=== PATIENT | male | born 1960 | race African-American/Black ===

== ENCOUNTER 2023-11-01 14:12 | Inpatient (IN) | payer OTHER ==
[2023-11-01 14:44] VITALS: BMI 20.3
[2023-11-01] MEDS ORDERED: BENZOCAINE/MENTHOL (CHLORASEPTIC ) LOZENGE MM PRN (16:10)
[2023-11-01] MEDS ORDERED: MAGNESIUM HYDROX 2400MG/30ML ORAL SUSPENSION 30 ML CUP PO PRN (16:10)
[2023-11-01] MEDS ORDERED: hydrOXYzine PAMOATE 25 MG CAPSULE (FP) PO PRN (16:10)
[2023-11-01] MEDS ORDERED: ACETAMINOPHEN 325 MG TABLET (FP) PO PRN (16:10)
[2023-11-01] MEDS ORDERED: DICYCLOMINE HCL 10 MG CAPSULE PO PRN (16:10)
[2023-11-01] MEDS ORDERED: POLYETHYLENE GLYCOL (HEALTHYLAX) 3350 17 GM PACKET PO PRN (16:10)
[2023-11-01] MEDS ORDERED: NALOXONE HCL (KLOXXADO) 8 MG SPRAY NS PRN (16:10)
[2023-11-01] MEDS ORDERED: LORazepam 1 MG TABLET PO PRN (16:10)
[2023-11-01] MEDS ORDERED: BISMUTH SUBSALICYLATE 524 MG/30 ML PO PRN (16:10)
[2023-11-01] MEDS ORDERED: IBUPROFEN 600 MG TABLET (FP) PO PRN (16:10)
[2023-11-01] MEDS ORDERED: BENZONATATE 200 MG CAPSULE PO PRN (16:10)
[2023-11-01] MEDS ORDERED: MAG HYDROX/AL HYDROX/SIMETH 30 ML UNIT-DOSE CUP PO PRN (16:10)
[2023-11-01] MEDS ORDERED: IBUPROFEN 400 MG TABLET (FP) PO PRN (16:10)
[2023-11-01] MEDS ORDERED: NALOXONE HCL 0.4 MG/ML VIAL IM PRN (16:10)
[2023-11-01] MEDS ORDERED: guaiFENesin 600 MG TABLET.ER (FP) PO PRN (16:10)
[2023-11-01] MEDS ORDERED: ONDANSETRON *ODT* 4 MG TABLET SL PRN (16:10)
[2023-11-01] MEDS ORDERED: TIMOLOL 0.5% OPHTHALMIC SOL 5 ML BOTTLE OD SCH (16:15)
[2023-11-01] MEDS: LORazepam 2 MG TABLET PO SCH ×2 (17:21→23:07)
[2023-11-01] MEDS: PRENATAL VITAMINS W/ FOLIC ACID TABLET (FP) PO SCH (18:14)
[2023-11-01] MEDS: NICOTINE 21 MG/24 HOURS TOPICAL PATCH TD SCH (18:14)
[2023-11-01] MEDS: LOPERAMIDE HCL 2 MG CAPSULE PO PRN (19:00)
[2023-11-01] MEDS: TIMOLOL 0.5% OPHTHALMIC SOL 5 ML BOTTLE OU SCH (23:06)
[2023-11-01] MEDS: LATANOPROST 0.005% OPHTH SOLN 2.5ML BOTTLE OU SCH (23:07)
[2023-11-01] MEDS: MELATONIN 5 MG TABLETS PO SCH (23:08)
[2023-11-01] MEDS: THIAMINE HCL 100 MG TABLET (FP) PO SCH (23:08)
[2023-11-02] MEDS: LORazepam 2 MG TABLET PO SCH ×4 (05:54→22:45)
[2023-11-02 08:29] LABS: POTASSIUM 3.5 mmol/L (3.5-5.1)
[2023-11-02 08:34] LABS: CALCIUM 9.3 mg/dL (8.5-10.1)
[2023-11-02 08:35] LABS: ALBUMIN 2.4 g/dl (3.4-5.0); BLOOD UREA NITROGEN 19.8 mg/dL (7-18)
[2023-11-02 08:38] LABS: CREATININE 1.3 mg/dL (0.55-1.3)
[2023-11-02 08:39] LABS: TOT PROT 6.4 g/dl (6.4-8.2)
[2023-11-02 08:40] LABS: BILIRUBIN,TOTAL 2.9 mg/dL (0.2-1)
[2023-11-02 08:42] LABS: HEMATOCRIT 24.2 % (35.4-49); HEMOGLOBIN 8.1 GM/dL (11.7-16.9); MCH 30.5 pg (25.7-33.7); MCHC 33.5 g/dl (32.0-35.9); MEAN PLT VOLUME 8.8 fl (7.5-11.1); PLATELET COUNT 101 10^3/uL (134-434); RBC 2.65 M/mm3 (4.00-5.60); RDW 15.2 % (11.9-15.9); WHITE BLOOD COUNT 3.8 K/mm3 (4.0-10.0)
[2023-11-02] MEDS ORDERED: ASPIRIN 81 MG CHEWABLE TABLETS PO SCH (10:00)
[2023-11-02] MEDS: PRENATAL VITAMINS W/ FOLIC ACID TABLET (FP) PO SCH (10:59)
[2023-11-02] MEDS: TIMOLOL 0.5% OPHTHALMIC SOL 5 ML BOTTLE OU SCH ×2 (10:59→22:46)
[2023-11-02] MEDS: METHOCARBAMOL 500 MG TABLET PO PRN (10:59)
[2023-11-02] MEDS: amLODIPine BESYLATE 10 MG TABLET (FP) PO SCH (10:59)
[2023-11-02] MEDS: NICOTINE 21 MG/24 HOURS TOPICAL PATCH TD SCH (11:00)
[2023-11-02] MEDS: MELATONIN 5 MG TABLETS PO SCH (22:45)
[2023-11-02] MEDS: THIAMINE HCL 100 MG TABLET (FP) PO SCH (22:45)
[2023-11-02] MEDS: LATANOPROST 0.005% OPHTH SOLN 2.5ML BOTTLE OU SCH (22:46)
[2023-11-02] MEDS: LOPERAMIDE HCL 2 MG CAPSULE PO PRN (22:49)
[2023-11-03] MEDS: LORazepam 1 MG TABLET PO SCH ×4 (05:46→22:39)
[2023-11-03] MEDS: NICOTINE 21 MG/24 HOURS TOPICAL PATCH TD SCH (10:14)
[2023-11-03] MEDS: TIMOLOL 0.5% OPHTHALMIC SOL 5 ML BOTTLE OU SCH ×2 (10:14→22:39)
[2023-11-03] MEDS: PRENATAL VITAMINS W/ FOLIC ACID TABLET (FP) PO SCH (10:14)
[2023-11-03] MEDS: amLODIPine BESYLATE 10 MG TABLET (FP) PO SCH (10:15)
[2023-11-03 12:12] LABS: CHLORIDE 109 mmol/L (98-107); SODIUM 138 mmol/L (136-145)
[2023-11-03 12:20] LABS: ALBUMIN 2.2 g/dl (3.4-5.0); BLOOD UREA NITROGEN 17.3 mg/dL (7-18); GLUCOSE,RANDOM 89 mg/dL (74-106)
[2023-11-03 12:21] LABS: CO2 20 mmol/L (21-32)
[2023-11-03 12:23] LABS: CREATININE 1.1 mg/dL (0.55-1.3); PHOSPHOROUS 2.4 mg/dL (2.5-4.9)
[2023-11-03 12:24] LABS: POTASSIUM 2.9 mmol/L (3.5-5.1)
[2023-11-03] MEDS ORDERED: POTASSIUM CHLORIDE ORAL LIQUID 20 MEQ/15 ML PO ONE ×2 (13:00→17:00)
[2023-11-03] MEDS: MELATONIN 5 MG TABLETS PO SCH (22:39)
[2023-11-03] MEDS: THIAMINE HCL 100 MG TABLET (FP) PO SCH (22:39)
[2023-11-03] MEDS: LATANOPROST 0.005% OPHTH SOLN 2.5ML BOTTLE OU SCH (22:40)
[2023-11-04] MEDS ORDERED: LORazepam 0.5 MG TABLET PO PRN
[2023-11-04] MEDS: LORazepam 0.5 MG TABLET PO SCH ×4 (05:44→22:22)
[2023-11-04] MEDS: NICOTINE 21 MG/24 HOURS TOPICAL PATCH TD SCH (10:35)
[2023-11-04] MEDS: TIMOLOL 0.5% OPHTHALMIC SOL 5 ML BOTTLE OU SCH ×2 (10:37→22:23)
[2023-11-04] MEDS: PRENATAL VITAMINS W/ FOLIC ACID TABLET (FP) PO SCH (10:37)
[2023-11-04] MEDS: amLODIPine BESYLATE 10 MG TABLET (FP) PO SCH (10:37)
[2023-11-04] MEDS: MELATONIN 5 MG TABLETS PO SCH (22:21)
[2023-11-04] MEDS: THIAMINE HCL 100 MG TABLET (FP) PO SCH (22:22)
[2023-11-04] MEDS: METHOCARBAMOL 500 MG TABLET PO PRN (22:22)
[2023-11-04] MEDS: LATANOPROST 0.005% OPHTH SOLN 2.5ML BOTTLE OU SCH (22:23)
[2023-11-05] MEDS ORDERED: LORazepam 0.5 MG TABLET PO ONE (05:00)
[2023-11-05 07:18] VITALS: TEMP 98.9
[2023-11-05 09:51] VITALS: BP 110/66; PULSE 68; RESP 20
[2023-11-05] MEDS: NICOTINE 21 MG/24 HOURS TOPICAL PATCH TD SCH (10:14)
[2023-11-05] MEDS: PRENATAL VITAMINS W/ FOLIC ACID TABLET (FP) PO SCH (10:15)
[2023-11-05] MEDS: TIMOLOL 0.5% OPHTHALMIC SOL 5 ML BOTTLE OU SCH (10:15)
[2023-11-05] MEDS: amLODIPine BESYLATE 10 MG TABLET (FP) PO SCH (10:15)
== END 2023-11-05 10:34 | disposition home or self-care (01) | DRG 775 ==
LOC: YASAS 14:12 → Y6N 17:26
PROVIDERS: ADMIT Allergy & Immunology; ATTEND Surgery
PROC: HZ2ZZZZ Detoxification Services for Substance Abuse Treatment (ICD-10-PCS; principal; 2023-11-01)
DX: F10.230 Alcohol dependence with withdrawal, uncomplicated (principal); F17.210 Nicotine dependence, cigarettes, uncomplicated; E87.6 Hypokalemia; D64.9 Anemia, unspecified; I10 Essential (primary) hypertension; Z86.11 Personal history of tuberculosis; R73.9 Hyperglycemia, unspecified; R94.5 Abnormal results of liver function studies
CPT/HCPCS: 36415; 71046-TC-FY; 80053; 80069; 80307; 82247; 82607; 82728; 82746; 83036; 83540; 83550; 84080; 84132; 84450; 85027; 85730; 86780; 87635; 93005; 93010

== ENCOUNTER 2025-08-01 14:14 | Inpatient (IN) | payer OTHER ==
[2025-08-01 14:58] VITALS: BMI 19.8
[2025-08-01] MEDS ORDERED: BENZONATATE 200 MG CAPSULE PO PRN (15:17)
[2025-08-01] MEDS ORDERED: hydrOXYzine PAMOATE 25 MG CAPSULE (FP) PO PRN (15:17)
[2025-08-01] MEDS ORDERED: BENZOCAINE/MENTHOL (CHLORASEPTIC ) LOZENGE MM PRN (15:17)
[2025-08-01] MEDS ORDERED: MAG HYDROX/AL HYDROX/SIMETH 30 ML UNIT-DOSE CUP PO PRN (15:17)
[2025-08-01] MEDS ORDERED: LOPERAMIDE HCL 2 MG CAPSULE PO PRN (15:17)
[2025-08-01] MEDS ORDERED: IBUPROFEN 400 MG TABLET (FP) PO PRN (15:17)
[2025-08-01] MEDS ORDERED: NALOXONE (NARCAN) HCL 4 MG/0.1 ML SPRAY NS PRN (15:17)
[2025-08-01] MEDS ORDERED: DICYCLOMINE HCL 10 MG CAPSULE PO PRN (15:17)
[2025-08-01] MEDS ORDERED: ONDANSETRON *ODT* 4 MG TABLET SL PRN (15:17)
[2025-08-01] MEDS ORDERED: MAGNESIUM HYDROX 2400MG/30ML ORAL SUSPENSION 30 ML CUP PO PRN (15:17)
[2025-08-01] MEDS ORDERED: POLYETHYLENE GLYCOL (HEALTHYLAX) 3350 17 GM PACKET PO PRN (15:17)
[2025-08-01] MEDS ORDERED: ACETAMINOPHEN 325 MG TABLET (FP) PO PRN (15:17)
[2025-08-01] MEDS ORDERED: METHOCARBAMOL 500 MG TABLET PO PRN (15:17)
[2025-08-01] MEDS ORDERED: IBUPROFEN 600 MG TABLET (FP) PO PRN (15:17)
[2025-08-01] MEDS ORDERED: guaiFENesin 600 MG TABLET.ER (FP) PO PRN (15:17)
[2025-08-01] MEDS ORDERED: NICOTINE 14 MG/24 HOURS TOPICAL PATCH TD ONE (16:43)
[2025-08-01] MEDS ORDERED: PRENATAL VITAMINS W/ FOLIC ACID TABLET (FP) PO ONE (16:44)
[2025-08-01] MEDS: PRENATAL VITAMINS W/ FOLIC ACID TABLET (FP) PO SCH (16:48)
[2025-08-01] MEDS: NICOTINE 14 MG/24 HOURS TOPICAL PATCH TD SCH (16:49)
[2025-08-01] MEDS: BISMUTH SUBSALICYLATE 524 MG/30 ML PO PRN (19:10)
[2025-08-01] MEDS: THIAMINE 100 MG TABLET PO SCH (22:33)
[2025-08-01] MEDS: MELATONIN 5 MG TABLETS PO SCH (22:33)
[2025-08-01] MEDS: ACAMPROSATE CALCIUM 333 MG TABLET.DR PO SCH (22:33)
[2025-08-01] MEDS: TIMOLOL 0.5% OPHTHALMIC SOL 5 ML BOTTLE OU SCH (22:33)
[2025-08-01] MEDS: LATANOPROST 0.005% OPHTH SOLN 2.5ML BOTTLE OU SCH (22:34)
[2025-08-02 09:57] LABS: MCHC 33.0 g/dl (32.3-36.5); MEAN CELL VOLUME 78.8 fl (79.0-92.2); MEAN PLT VOLUME 10.1 fl (9.4-12.4); RDW 16.7 % (12.2-16.4)
[2025-08-02 10:16] LABS: GLUCOSE,RANDOM 131.0 mg/dL (74-106)
[2025-08-02] MEDS: amLODIPine BESYLATE 10 MG TABLET (FP) PO SCH (10:16)
[2025-08-02] MEDS: ASPIRIN 81 MG CHEWABLE TABLETS PO SCH (10:16)
[2025-08-02 10:17] LABS: TOT PROT 7.9 g/dl (6.4-8.2)
[2025-08-02 10:18] LABS: CO2 23.0 mmol/L (21-32)
[2025-08-02 10:22] LABS: CREATININE 0.76 mg/dL (0.55-1.3); SGOT/AST 108.0 U/L (5-34); SGPT/ALT 43.0 U/L (0-55)
[2025-08-02 10:52] LABS: ALK PHOS 286.0 U/L (40-150)
[2025-08-03 06:19] VITALS: PULSE 64
[2025-08-03 09:13] VITALS: BP 167/93; RESP 15; TEMP 97.1
== END 2025-08-03 10:10 | disposition home or self-care (01) | DRG 897 ==
LOC: YASAS 14:14 → Y3N 16:57
PROVIDERS: ADMIT Neuromusculoskeletal Medicine & OMM; ATTEND Allergy & Immunology
PROC: HZ2ZZZZ Detoxification Services for Substance Abuse Treatment (ICD-10-PCS; principal; 2025-08-01)
DX: F10.230 Alcohol dependence with withdrawal, uncomplicated (principal); I10 Essential (primary) hypertension; H40.9 Unspecified glaucoma
CPT/HCPCS: 36415; 80053; 80307; 85027; 86780; 93005; 93010